=== PATIENT | male | born 1995 | race Caucasian/White ===

== ENCOUNTER 2018-09-06 15:15 | Emergency (ER) | payer SELFPAY ==
[~2018-09-06] VITALS: Ht 180.3 cm; Wt 76.4 kg
[2018-09-06 15:27] VITALS: BP 126/75
--- NOTE | 2018-09-06 15:29 | NUR ---
PT RETURNED TO LOBBY IN STABLE CONDITION.
--- NOTE | 2018-09-06 15:43 | NUR ---
PT AMBULATED TO ER BED 05
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
--- NOTE | 2018-09-06 16:52 | NUR ---
DR ANGELA AT BEDSIDE
[2018-09-06] MEDS ORDERED: IBUPROFEN 600 MG TAB PO ONE (16:55)
[2018-09-06 17:00] VITALS: BP 124/78
--- NOTE | 2018-09-06 17:00 | NUR ---
VSS AT THIS TIME. AA0X4. PT SITTING IN BED
--- NOTE | 2018-09-06 17:12 | NUR ---
XRAY AT BEDSIDE
--- NOTE | 2018-09-06 17:58 | NUR ---
VELCRO WRIST SPLINT RIGHT HAND APPLIED BY LINDA FAUST. PT VERBALIZES UNDERSTANDING OF USE. CAP REFILL <3 SECONDS.
--- NOTE | 2018-09-06 18:37 | NUR ---
PATIENT ELOPED FROM FACILITY. DISCHARGE INSTRUCTIONS NOT GIVEN TO PATIENT. DR. ANGELA NOTIFIED.
== END 2018-09-06 18:37 | disposition home or self-care (01) ==
LOC: MED 15:15
DX: S60.222A Contusion of left hand, initial encounter (principal); S60.221A Contusion of right hand, initial encounter; W22.8XXA Striking against or struck by other objects, initial encounter; Y93.89 Activity, other specified; Y92.89 Other specified places as the place of occurrence of the external cause; Y99.8 Other external cause status
CPT/HCPCS: 29125; 73130; 99283; Q0092

== ENCOUNTER 2019-09-07 15:03 | Emergency (ER) | payer MEDICAID ==
[~2019-09-07] VITALS: Ht 180.3 cm; Wt 77.1 kg
[2019-09-07 15:09] VITALS: BP 122/91
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
--- NOTE | 2019-09-07 15:15 | NUR ---
DR SCHWAB AT BEDSIDE EVALUATING PT
[2019-09-07] MEDS ORDERED: cefTRIAXone 250 MG in LIDOCAINE MPF 1% 0.9 ML IM ONE (15:20)
[2019-09-07] MEDS ORDERED: AZITHROMYCIN 250 MG TAB PO ONE (15:20)
[2019-09-07] MEDS ORDERED: cefTRIAXone 250 MG VIAL ONE (15:23)
[2019-09-07] MEDS ORDERED: LIDOCAINE MPF 1% 5 ML ONE (15:23)
--- NOTE | 2019-09-07 15:30 | NUR ---
Patient discharged with v/s stable. Written and verbal after care instructions given and explained. Patient alert, oriented and verbalized understanding of instructions. Ambulatory with steady gait. All questions addressed prior to discharge. ID band removed. Patient advised to follow up with PMD. Rx of POLYMYXIN/TRIMETHOPRIM given. Patient educated on indication of medication including possible reaction and side effects. Opportunity to ask questions provided and answered.
[2019-09-07 15:43] VITALS: BP 122/91
[2019-09-07 17:35] LABS: APPEARANCE,URINE HAZY (CLEAR); BILIRUBIN,URINE 1+ (NEGATIVE); BLOOD, URINE NEGATIVE (NEGATIVE); COLOR,URINE YELLOW (YELLOW); LEUKOCYTE ESTERASE ,URINE NEGATIVE (NEGATIVE); NITRITE, URINE NEGATIVE (NEGATIVE); UGLUCOSE NEGATIVE (NEGATIVE)
[2019-09-09 06:08] LABS: CHLAMYDIA TRACHOMATIS AMP DNA Negative (Negative)
== END 2019-09-07 15:44 | disposition home or self-care (01) ==
LOC: MED 15:03
DX: H10.33 Unspecified acute conjunctivitis, bilateral (principal); F17.210 Nicotine dependence, cigarettes, uncomplicated; Z20.2 Contact with and (suspected) exposure to infections with a predominantly sexual mode of transmission
CPT/HCPCS: 36415; 81003; 96372; 99283; J0696; J2001; 87491